=== PATIENT | female | born 1945 | race Caucasian/White ===

== ENCOUNTER 2017-06-29 10:00 | Outpatient (CLI) | payer MEDICARE ==
--- NOTE | 2017-06-29 11:36 | MMO ---
BILATERAL DIGITAL SCREENING MAMMOGRAMS: HISTORY: This 72-year-old female presents for digital screening mammography. The patient indicates that she has had prior mammograms more than 10 years ago which are not availabl e, so this will be treated as a baseline study. This patient's mammogram was interpreted with the assistance of computer-aided detection. FINDINGS: Scattered fibroglandular density are noted in both breasts. There are typically benign calcification s noted bilaterally. There appear to be 2 circumscribed nodular densities in the left breast outer a spect, evidence for intramammary lymph nodes. There is a faint parenchymal density asymmetry in the outer central aspect of the right breast mid to anterior depth. On the left side, there is also an a symmetric density which is more outer upper. Both of these need additional evaluation for further as sessment. IMPRESSION: BI-RADS category 0, assessment is incomplete. Needs additional imaging evaluation. Bilateral asymme tric densities need additional evaluation with followup diagnostic mammograms to include focal compre ssion spot views and CC and MLO views of the areas of the parenchymal asymmetric areas of concern wit h 90-degree mediolateral views of both breasts and bilateral breast ultrasound if needed. POS: SUDEEP
== END 2017-06-29 10:01 | disposition home or self-care (01) ==
LOC: SCSMAMMO 10:00
PROVIDERS: ATTEND Internal Medicine
DX: Z12.31 Encounter for screening mammogram for malignant neoplasm of breast (principal); R92.1 Mammographic calcification found on diagnostic imaging of breast
CPT/HCPCS: 77067

== ENCOUNTER 2017-08-10 14:03 | Outpatient (CLI) | payer MEDICARE | END 2017-08-10 14:04 | disposition home or self-care (01) | LOC: BICMAMMO 14:03 | PROVIDERS: ATTEND Internal Medicine | DX: N63.20 Unspecified lump in the left breast, unspecified quadrant (principal) | CPT/HCPCS: 77066; G0279 ==

== ENCOUNTER 2017-09-04 15:32 | Emergency (ER) | payer MEDICARE ==
[2017-09-04 15:54] LABS: #Eosinphils 0.4 thou/uL (0.0-0.7); #Monocytes 0.7 thou/uL (0.11-0.59); #Neutrophils 6.6 thou/uL (1.40-6.50); %Basophils 0.4 % (0.0-1.0); %Eosinophils 4.1 % (0.0-10.0); %Lymphocytes 20.3 % (21.0-51.0); %Monocytes 7.5 % (0.0-10.0); %Neutrophils 67.7 % (42.0-75.0); Hemoglobin 11.9 g/dL (12.0-16.0); Mean Corpuscular HGB CONC 31.9 g/dL (32.0-36.0); Mean Corpuscular Hemoglobin 28.6 pg (27.0-31.0); Mean Corpuscular Volume 89.7 fl (81.0-99.0); Mean Platelet Volume 6.6 fL (7.4-10.4); Platelet Count 294 thou/uL (130-400); RBC Distribution Width 13.3 % (11.5-14.5); Red Blood Cell (RBC) Count 4.17 mill/uL (4.20-5.40); White Blood Cell (WBC) Count 9.8 thou/uL (4.8-10.8)
[2017-09-04 16:15] LABS: ALT (SGPT) 16 U/L (8-55); AST (SGOT) 20 U/L (5-34); Albumin 3.7 g/dL (3.4-4.8); Alkaline Phosphatase 100 U/L (40-150); Anion Gap 10 mmol/L (10-20); BUN (Urea Nitrogen) 18 mg/dL (9.8-20.1); Bilirubin, Total 0.3 mg/dL (0.2-1.2); Calc. Creatinine Clearance 0 mL/min (70-130); Calcium 8.9 mg/dL (7.8-10.44); Carbon Dioxide 27 mmol/L (23-31); Chloride 109 mmol/L (98-107); Estimated GFR-MDRD 82; Globulin 2.5 g/dL (2.4-3.5); Glucose 91 mg/dL (83-110); Potassium 3.8 mmol/L (3.5-5.1); Protein, Total 6.2 g/dL (6.0-8.3); Sodium 142 mmol/L (136-145)
[2017-09-04] MEDS ORDERED: Meclizine HCl 25 MG TAB ONE (16:36)
--- NOTE | 2017-09-04 18:01 | CT ---
CT OF THE BRAIN WITHOUT CONTRAST: Comparison: 02-17-13 History: Dizziness and tingling for two days. History of TIA. Technique: Multiple contiguous axial images were obtained in a CT of the brain without contrast. FINDINGS: There are scattered hypodensities in the subcortical and periventricular white matter, likely seconda ry to small vessel ischemic disease. There is a calcified lesion along the right frontal convexity wh ich may be a calcified meningioma. This remains stable. There is no evidence of hydrocephalus, intrac ranial hemorrhage, or extraaxial fluid collection. No new confluent infarction is seen. The visualized paranasal sinuses and mastoids are well aerated. IMPRESSION: 1. No evidence of acute intracranial abnormality. 2. Likely small calcified meningioma along the right frontal convexity. POS: SUDEEP
--- NOTE | 2017-11-05 16:11 | EKG ---
Test Reason : Blood Pressure : / mmHG Vent. Rate : 060 BPM Atrial Rate : 060 BPM P-R Int : 206 ms QRS Dur : 092 ms QT Int : 418 ms P-R-T Axes : -09 -41 019 degrees QTc Int : 418 ms Poor data quality, interpretation may be adversely affected Normal sinus rhythm Left axis deviation Abnormal ECG Confirmed by CHUCK RUBIO, JASON ([id number]), metropolitan editor HILL MIGUEL ([id number]) on 11/05/2017 4:11:21 PM Referred By: Confirmed By:JASON WOODS MD
== END 2017-09-04 18:45 | disposition home or self-care (01) ==
LOC: ERS 15:32
DX: H83.09 Labyrinthitis, unspecified ear (principal); I10 Essential (primary) hypertension; Z86.73 Personal history of transient ischemic attack (TIA), and cerebral infarction without residual deficits; Z79.899 Other long term (current) drug therapy
CPT/HCPCS: 36415; 70450; 80053; 85025; 93005

== ENCOUNTER 2018-07-29 18:03 | Emergency (ER) | payer MEDICARE ==
--- NOTE | 2018-07-29 18:32 | RAD ---
CHEST TWO VIEWS: 07/29/18 INDICATION: Cough and chills. COMPARISON: None. FINDINGS: No consolidation is evident. There is COPD change. There are numerous surgical clips in the upper abd omen. There is scattered vascular calcifications. No acute osseous abnormalities evident. IMPRESSION: No acute abnormality. POS: ELY
[2018-07-29 19:43] LABS: #Eosinphils 0.2 thou/uL (0.0-0.7); #Lymphocytes 0.5 thou/uL (1.20-3.40); #Monocytes 0.8 thou/uL (0.11-0.59); #Neutrophils 10.2 thou/uL (1.40-6.50); %Basophils 0.3 % (0.0-1.0); %Eosinophils 1.4 % (0.0-10.0); %Lymphocytes 3.9 % (21.0-51.0); %Neutrophils 87.4 % (42.0-75.0); Hemoglobin 11.9 g/dL (12.0-16.0); Mean Corpuscular Hemoglobin 30.7 pg (27.0-31.0); Mean Corpuscular Volume 99.1 fL (78.0-98.0); Mean Platelet Volume 7.5 fL (7.4-10.4); Platelet Count 231 thou/uL (130-400); RBC Distribution Width 12.1 % (11.5-14.5); Red Blood Cell (RBC) Count 3.87 mill/uL (4.20-5.40); White Blood Cell (WBC) Count 11.7 thou/uL (4.8-10.8)
[2018-07-29 19:57] LABS: ALT (SGPT) 17 U/L (8-55); AST (SGOT) 21 U/L (5-34); Albumin 3.7 g/dL (3.4-4.8); Alkaline Phosphatase 83 U/L (40-150); Anion Gap 10 mmol/L (10-20); BUN (Urea Nitrogen) 21 mg/dL (9.8-20.1); Bilirubin, Total 0.4 mg/dL (0.2-1.2); Calc. Creatinine Clearance 0 mL/min (70-130); Calcium 9.2 mg/dL (7.8-10.44); Carbon Dioxide 26 mmol/L (23-31); Chloride 103 mmol/L (98-107); Estimated GFR-MDRD 66; Globulin 2.7 g/dL (2.4-3.5); Glucose 111 mg/dL (83-110); Potassium 3.4 mmol/L (3.5-5.1); Protein, Total 6.4 g/dL (6.0-8.3); Sodium 136 mmol/L (136-145)
== END 2018-07-29 21:05 | disposition home or self-care (01) ==
LOC: ERS 18:03
DX: J11.1 Influenza due to unidentified influenza virus with other respiratory manifestations (principal); I10 Essential (primary) hypertension; Z86.73 Personal history of transient ischemic attack (TIA), and cerebral infarction without residual deficits
CPT/HCPCS: 36415; 71046; 80053; 83605; 85025; 87040; 87804

== ENCOUNTER 2019-11-27 13:55 | Outpatient (CLI) | payer MEDICARE ==
--- NOTE | 2019-11-27 15:27 | ULT ---
Thyroid sonogram HISTORY: Multinodular goiter. Follow-up. COMPARISON: 02/10/2016. FINDINGS: Right thyroid lobe measures up to 6.5 cm length. The lobular well-circumscribed cyst occupy ing most of the right thyroid lobe is 6.9 cm x 5.4 cm x 3.9 cm greatest diameters on the current exam. Stable. Isthmus is 0.5 cm thick. Left thyroid lobe measures up to 5.3 cm. The reniform circumscribed hypoechoic solid mass at the supe rior pole is stable at 2.2 cm x 1.4 cm greatest diameters. A slightly complex mass with internal coarse calcifications and posterior shadowing at the midportion of the left thyroid lobe is 1.4 cm x 1.4 cm greatest diameters. Heterogeneous predominantly isoechoic nodule at the inferior pole is stable. IMPRESSION : The most worrisome of the thyroid nodules is the hypoechoic 1.4 cm partially calcified nodule within the midportion of the left thyroid lobe. TI RADS 5. Highly suspicious. Please consider sonographic guided FNA. The lesion is most discernible by the shadowing calcifications. Large right thyroid lobe cyst and other nodules are stable.
== END 2019-11-27 13:56 | disposition home or self-care (01) ==
LOC: SCSULT 13:55
PROVIDERS: ATTEND Internal Medicine
DX: E04.2 Nontoxic multinodular goiter (principal)
CPT/HCPCS: 76536

== ENCOUNTER 2019-12-03 12:03 | Outpatient (CLI) | payer MEDICARE ==
--- NOTE | 2019-12-03 13:40 | MMO ---
Bilateral MAMMO Bilat Diag [facility]. CLINICAL HISTORY: Patient is 74 years old and is seen for diagnostic exam. The patient has no family history of breast cancer. The patient has no personal history of cancer. The patient has a history of left Excisional Biopsy more than 10 years ago - benign. VIEWS: The views performed were: bilateral craniocaudal with tomosynthesis; bilateral mediolateral oblique with tomosynthesis; and bilateral mediolateral with tomosynthesis. FILMS COMPARED: The present examination has been compared to prior imaging studies performed at [facility] on 08/10/2017, and at [facility] on 06/29/2017. This study has been interpreted with the assistance of computer-aided detection. MAMMOGRAM FINDINGS: There are scattered fibroglandular densities. Benign calcifications are noted bilaterally. There are no suspicious masses, suspicious calcifications, or new areas of architectural distortion. IMPRESSION: THERE IS NO MAMMOGRAPHIC EVIDENCE OF MALIGNANCY. A ROUTINE FOLLOW-UP MAMMOGRAM IN 1 YEAR IS RECOMMENDED. THE RESULTS OF THIS EXAM WERE SENT TO THE PATIENT. ACR BI-RADS Category 2 - Benign finding MAMMOGRAPHY NOTE: 1. A negative mammogram report should not delay a biopsy if a dominant of clinically suspicious mass is present. 2. Approximately 10% to 15% of breast cancers are not detected by mammography. 3. Adenosis and dense breasts may obscure an underlying neoplasm. Reported by: LENA KILPATRICK MD Electonically Signed: [id number]
== END 2019-12-03 12:04 | disposition home or self-care (01) ==
LOC: BICMAMMO 12:03
PROVIDERS: ATTEND Internal Medicine
DX: R92.8 Other abnormal and inconclusive findings on diagnostic imaging of breast (principal)
CPT/HCPCS: 77066; G0279

== ENCOUNTER 2020-03-21 10:44 | Outpatient (CLI) | payer MEDICARE, OTHER ==
[2020-03-21 17:50] LABS: SARS-CoV-2 MS2 Positive; SARS-CoV-2 N Gene Negative; SARS-CoV-2 S Gene Negative; SARS-CoV-2 by NAA Not Detected (NotDetected); SARS-CoV-2 orf1ab Negative
== END 2020-03-21 10:45 | disposition home or self-care (01) ==
LOC: LABBT 10:44
PROVIDERS: ATTEND Internal Medicine
DX: Z20.828 Contact with and (suspected) exposure to other viral communicable diseases (principal)
CPT/HCPCS: 87635; U0003

== ENCOUNTER 2020-03-26 12:18 | Day surgery (SDC) | payer MEDICARE ==
[2020-03-26] MEDS ORDERED: Sodium Bicarbonate 2.5 MEQ/5 ML VIAL ONE (12:56)
[2020-03-26] MEDS ORDERED: Lidocaine 1% PF 5 ML VIAL ONE ×2 (12:56)
[2020-03-26 14:30] VITALS: BP 142/71; TEMP 98.6
--- NOTE | 2020-03-26 14:46 | ULT ---
Fine-needle aspiration left thyroid lobe nodule sonographic guided HISTORY: Left thyroid mass. FINDINGS: After explaining the procedure and answering all questions, the hypoechoic mass within the central portion left thyroid lobe containing calcifications was again identified. Sterile technique, buffered local anesthesia, sonographic guidance, and a medial approach were used t o carefully advance a 25-gauge needle into the suspicious hypoechoic nodule. A total of 4 FNA samples were obtained and submitted to pathology for processing. Postprocedure imaging shows no evidence of complication. Patient tolerated the procedure well and was dismissed in good condition. IMPRESSION : Technically successful sonographic guided FNA left thyroid mass. Pathology is pending.
== END 2020-03-26 14:15 | disposition home or self-care (01) ==
LOC: ULT 12:18
PROVIDERS: ATTEND Internal Medicine
PROC: 0GBG4ZX Excision of Left Thyroid Gland Lobe, Percutaneous Endoscopic Approach, Diagnostic (ICD-10-PCS; principal; 2020-03-26)
DX: E04.1 Nontoxic single thyroid nodule (principal); I10 Essential (primary) hypertension; J44.9 Chronic obstructive pulmonary disease, unspecified; Z79.02 Long term (current) use of antithrombotics/antiplatelets; Z79.82 Long term (current) use of aspirin; Z79.899 Other long term (current) drug therapy; Z86.73 Personal history of transient ischemic attack (TIA), and cerebral infarction without residual deficits; Z87.891 Personal history of nicotine dependence; Z88.2 Allergy status to sulfonamides
CPT/HCPCS: 60100; 76942; 88173

== ENCOUNTER 2022-05-10 21:12 | Emergency (ER) | payer MEDICARE, OTHER | END 2022-05-11 00:01 | disposition home or self-care (01) | LOC: ERS 21:12 | DX: S09.90XA Unspecified injury of head, initial encounter (principal); S00.11XA Contusion of right eyelid and periocular area, initial encounter; S00.83XA Contusion of other part of head, initial encounter; M25.562 Pain in left knee; M79.642 Pain in left hand; E04.1 Nontoxic single thyroid nodule; I10 Essential (primary) hypertension; W10.8XXA Fall (on) (from) other stairs and steps, initial encounter; Y93.01 Activity, walking, marching and hiking; Y92.096 Garden or yard of other non-institutional residence as the place of occurrence of the external cause; Z86.73 Personal history of transient ischemic attack (TIA), and cerebral infarction without residual deficits | CPT/HCPCS: 70450; 72125 ==